=== PATIENT | female | born 1995 | race Caucasian/White ===

== ENCOUNTER 2016-09-08 17:00 | Emergency (ER) | payer OTHER ==
--- NOTE | 2016-09-08 17:21 | ER Document Report ---
ED Medical Screen (RME) - General Chief Complaint: Abdominal Pain Stated Complaint: DIZZINESS Mode of Arrival: Ambulatory Information source: Patient Notes: 21-year-old female presents to the emergency department complaining of intermittently persistent dizziness, nausea, decreased appetite, and lower abdominal pain for approximately the last 2 weeks. Reports had D&C 2 weeks ago after miscarriage at 10 weeks gestation, G1. LMP 06/15/16. Denies fever. I have greeted and performed a rapid initial assessment of this patient. A comprehensive ED assessment and evaluation of the patient, analysis of test results and completion of the medical decision making process will be conducted by additional ED providers. TRAVEL OUTSIDE OF THE [place] IN LAST 30 DAYS: No - Related Data Allergies/Adverse Reactions: No Known Allergies Allergy (Unverified 09/08/16 17:13) Past Medical History - Social History Chew tobacco use (# tins/day): No Frequency of alcohol use: None Drug Abuse: None Renal/ Medical History: Denies: Hx Peritoneal Dialysis Physical Exam - Vital signs Vitals: Temp Pulse Resp BP Pulse Ox 98.5 F 99 18 141/56 H 100 09/08/16 17:04 09/08/16 17:04 09/08/16 17:04 09/08/16 17:04 09/08/16 17:04 - General General appearance: Alert In distress: None - Respiratory Respiratory status: No respiratory distress Course - Vital Signs Vital signs: Temp Pulse Resp BP Pulse Ox 98.5 F 99 18 141/56 H 100 09/08/16 17:04 09/08/16 17:04 09/08/16 17:04 09/08/16 17:04 09/08/16 17:04
[2016-09-08 17:44] LABS: APPEARANCE,URINE CLEAR; BILIRUBIN,URINE NEGATIVE (NEGATIVE); GLUCOSE, URINE NEGATIVE (NEGATIVE); KETONES,URINE 80 mg/dL (NEGATIVE); LEUKOCYTE ESTERASE,URINE NEGATIVE (NEGATIVE); NITRITE,URINE NEGATIVE (NEGATIVE); PROTEIN,URINE 30 mg/dL (NEGATIVE); URINE SPECIFIC GRAVITY 1.024; UROBILINOGEN,URINE NEGATIVE mg/dL (<2.0)
[2016-09-08 17:45] LABS: ABSOLUTE MONOCYTES (AUTO) 0.6 10^3/uL (0.1-1.4); ABSOLUTE NEUT (AUTO) 4.1 10^3/uL (1.7-8.2); BASOPHILS % (AUTO) 0.7 % (0-2); EOSINOPHILS % (AUTO) 0.1 % (0-6); HEMATOCRIT 43.9 % (36.0-47.0); HEMOGLOBIN 15.1 g/dL (12.0-15.5); HGB HCT DIFFERENCE 1.4; LYMPHOCYTES % (AUTO) 29.9 % (13-45); MEAN CORPUSCULAR HEMOGLOBIN 30.5 pg (27.0-33.4); MEAN CORPUSCULAR HGB CONC 34.4 g/dL (32.0-36.0); MEAN CORPUSCULAR VOLUME 89 fl (80-97); MONOCYTES % (AUTO) 8.8 % (3-13); RED BLOOD COUNT 4.94 10^6/uL (3.72-5.28); RED CELL DISTRIBUTION WIDTH 13.5 % (11.5-14.0); SEGMENTED NEUTROPHILS % (AUTO) 60.5 % (42-78); WHITE BLOOD COUNT 6.7 10^3/uL (4.0-10.5)
[2016-09-08 17:59] LABS: ALANINE AMINOTRANSFERASE 52 U/L (9-52); ALBUMIN 5.3 g/dL (3.5-5.0); ALKALINE PHOSPHATASE 64 U/L (38-126); ANION GAP 18 (5-19); ASPARTATE AMINO TRANSFERASE 61 U/L (14-36); BILIRUBIN,TOTAL 1.8 mg/dL (0.2-1.3); BLOOD UREA NITROGEN 20 mg/dL (7-20); CALCIUM 11.2 mg/dL (8.4-10.2); CARBON DIOXIDE 23 mmol/L (22-30); CHLORIDE 102 mmol/L (98-107); CREATININE RESULT 1.15 mg/dL (0.52-1.25); GLUCOSE 77 mg/dL (75-110); LIPASE 121.7 U/L (23-300); POTASSIUM 5.1 mmol/L (3.6-5.0); SODIUM 142.8 mmol/L (137-145); TOTAL PROTEIN 8.3 g/dL (6.3-8.2)
[2016-09-08] MEDS ORDERED: NORMAL SALINE 1000 ML 1,000 ML IV ONE ×2 (18:19→20:18)
--- NOTE | 2016-09-08 18:31 | ER Document Report ---
ED GI/ - General Mode of Arrival: Ambulatory Information source: Patient TRAVEL OUTSIDE OF THE [place] IN LAST 30 DAYS: No - HPI Patient complains to provider of: Other - see narrative Location: Left flank, Right flank, Suprapubic <MARY ALICE SELLERS - Last Filed: 09/08/16 21:59> <PRIETOMEETA SARY - Last Filed: 09/08/16 22:51> - General Chief Complaint: Abdominal Pain Stated Complaint: DIZZINESS Notes: Patient is a 21-year-old female that presents to the emergency department today with complaints of dizziness with associated abdominal cramping and nausea. Patient states that she had a D&C a few weeks ago secondary to a miscarriage. Patient states that she had an ultrasound done yesterday and "everything looked okay". Patient states she has had a decreased appetite over the last week with lower abdominal pain and back pain. Patient denies any diarrhea, fevers, or dysuria. (MARY ALICE SELLERS) - Related Data Allergies/Adverse Reactions: No Known Allergies Allergy (Unverified 09/08/16 17:13) Past Medical History - General Information source: Patient - Social History Smoking Status: Never Smoker Cigarette use (# per day): No Chew tobacco use (# tins/day): No Frequency of alcohol use: None Drug Abuse: None Lives with: Family Family History: Reviewed & Not Pertinent Patient has suicidal ideation: No Patient has homicidal ideation: No - Medical History Medical History: Negative Surgical Hx: Negative <MARY ALICE SELLERS - Last Filed: 09/08/16 21:59> Review of Systems - Review of Systems Constitutional: denies: Fever EENT: No symptoms reported Cardiovascular: See HPI, Dizziness Respiratory: No symptoms reported Gastrointestinal: See HPI, Abdominal pain - cramping, Nausea. denies: Diarrhea Genitourinary: See HPI, Other - vaginal spotting. denies: Dysuria Female Genitourinary: No symptoms reported Musculoskeletal: No symptoms reported Skin: No symptoms reported Hematologic/Lymphatic: No symptoms reported Neurological/Psychological: No symptoms reported -: Yes All other systems reviewed and negative <MARY ALICE SELLERS - Last Filed: 09/08/16 21:59> Course - Laboratory Result Diagrams: 09/08/16 17:26 09/08/16 17:26 <MARY ALICE SELLERS - Last Filed: 09/08/16 21:59> - Laboratory Result Diagrams: 09/08/16 17:26 09/08/16 17:26 - Diagnostic Test Radiology reviewed: Reports reviewed <MEETA MOREAU - Last Filed: 09/08/16 22:51> - Re-evaluation Re-evalutation: 09/08/16 Patient clinically appears dehydrated. Ketones in urine. Feels better after nausea medicine and fluids. Patient was being discharged and then stated that she had Pain a few days ago. None currently. Patient will be given outpatient venous Doppler follow-up. She is at a point with her doctor Sunday. Stable for discharge. (MEETA MOREAU) - Vital Signs Vital signs: Temp Pulse Resp BP Pulse Ox 98.5 F 50 L 18 119/67 100 09/08/16 17:04 09/08/16 21:52 09/08/16 17:04 09/08/16 21:52 09/08/16 17:04 - Laboratory Laboratory results interpreted by me: 09/08/16 09/08/16 09/08/16 17:26 17:26 17:26 Potassium 5.1 H Est GFR (Non-Af Amer) 59 L Calcium 11.2 H Total Bilirubin 1.8 H AST 61 H Total Protein 8.3 H Albumin 5.3 H Serum HCG, Qual POSITIVE H Beta HCG, Quant Urine Protein 30 H Urine Ketones 80 H Urine Blood SMALL H 09/08/16 17:26 Potassium Est GFR (Non-Af Amer) Calcium Total Bilirubin AST Total Protein Albumin Serum HCG, Qual Beta HCG, Quant 88.50 H Urine Protein Urine Ketones Urine Blood Discharge <MARY ALICE SELLERS - Last Filed: 09/08/16 21:59> <MEETA MOREAU - Last Filed: 09/08/16 22:51> - Discharge Clinical Impression: Dehydration, Nausea Condition: Stable Disposition: HOME, SELF-CARE Additional Instructions: Please follow-up with your doctor Sunday scheduled. Prescriptions: Famotidine [Pepcid 20 mg Tablet] 20 mg PO BID #30 tablet Metoclopramide HCl [Reglan] 10 mg PO BIDP PRN #20 tablet PRN Reason: Ondansetron [Zofran Odt 4 mg Tablet] 1 tab PO Q4H PRN #20 tab.rapdis PRN Reason: For Nausea/Vomiting Sucralfate [Carafate 1 gm Tablet] 1 gm PO ACHS #20 tablet Forms: Follow-Up Radiology Testing Scribe Attestation: 09/08/16 22:50 I personally performed the services described in the documentation, reviewed and edited the documentation which was dictated to the scribe in my presence, and it accurately records my words and actions. (MEETA MOREAU) Scribe Documentation - Scribe Written by Ivette:: Ivette Chiang, [id number] acting as scribe for :: Prieto <MARY ALICE SELLERS - Last Filed: 09/08/16 21:59>
[2016-09-08] MEDS ORDERED: ONDANSETRON HCL INJ/PF 4 MG/2 ML SDV IV ONE (20:18)
[2016-09-08] MEDS ORDERED: SUCRALFATE 1 GM TABLET PO ONE (21:20)
[2016-09-08] MEDS ORDERED: FAMOTIDINE 20 MG TABLET PO ONE (21:20)
[2016-09-08] MEDS ORDERED: KETOROLAC TROMETHAMINE INJ/PF 30 MG/1 ML SDV IV ONE (21:31)
[2016-09-08 23:01] VITALS: BP 113/51
== END 2016-09-08 22:58 | disposition home or self-care (01) ==
LOC: ER 17:00
DX: E86.0 Dehydration (principal); R11.0 Nausea; R10.9 Unspecified abdominal pain; R42 Dizziness and giddiness; R63.0 Anorexia
CPT/HCPCS: 99284; 96361; 96374; 96375; 36415; 84702; 83690; 84703; 85025; 80053; 81001; 76705; J1885; J2405; J7030